=== PATIENT | female | born 1985 | race Hispanic/Latino ===

== ENCOUNTER 2021-12-14 19:46 | Emergency (ER) | payer OTHER ==
[2021-12-14] MEDS ORDERED: diphenhydrAMINE 25 MG CAP ONE (20:55)
[2021-12-14] MEDS ORDERED: Famotidine 20 MG TAB ONE (20:58)
[2021-12-14] MEDS ORDERED: Famotidine 20 MG TAB PO SCH (21:00)
== END 2021-12-14 21:40 | disposition home or self-care (01) ==
LOC: CSHERS 19:46
DX: T78.40XA Allergy, unspecified, initial encounter (principal)
CPT/HCPCS: 99283